=== PATIENT | female | born 1965 | race Caucasian/White ===

== ENCOUNTER → 2016-11-16 | Outpatient (CLI) | payer OTHER ==
[~2016-11-16] MED LIST: ASCO10003 PO; BIOTCAP2 PO; CALC500C70 PO; CEPH500C2 PO; FEXO1TAB58 PO; HYDR-5688 PO; LOSA100T2 PO; MULT-506 PO; OMEG10007 PO; PRM625 PO; SPECCAP4 PO; VITAMIN B12 SL
[2016-11-16 09:58] LABS: BLOOD UREA NITROGEN 15 mg/dl (7-18); BUN/CREATININE RATIO 18.1 (10-20); CARBON DIOXIDE 30 mmol/L (21-32); CHLORIDE 104 mmol/L (98-107); CHOLESTEROL 200 mg/dl (0-200); CREATININE 0.85 mg/dl (0.60-1.20); GLUCOSE 81 mg/dl (70-99); POTASSIUM 3.9 mmol/L (3.5-5.1); SODIUM 139 mmol/L (136-145); TRIGLYCERIDES 123 mg/dl (0-150); VERY LOW DENSITY LIPOPROT CALC 25 mg/dl
[2016-11-16 10:02] LABS: HDL CHOLESTEROL 67 mg/dl; LDL CHOLESTEROL CALCULATED 108 mg/dl
--- NOTE | 2016-11-19 11:35 | CODING QUERY NO DIAGNOSIS ---
TREATMENT RENDERED WITHOUT A DIAGNOSIS To promote full compliance with coding requirements relating to patient care, physician participation is requested in all cases of business services sales agent uncertainty. Please assist us with providing a diagnosis/symptom for the test(s) below: A diagnosis/symptom was not documented on your Order. A valid diagnosis/symptom is required to bill all insurances. Please remember that we are unable to code a diagnosis of rule out, probable, possible, questionable, or suspected. Tests that require a diagnosis: DOS 11/16 * PRP DIAGNOSIS: * Lipids DIAGNOSIS: Provider Signature: Date: Thank you Paula [facility] Health Information Management Once completed, please kindly fax back to [phone] For questions please call [phone]
== END | disposition home or self-care (01) ==
LOC: C.LAB 08:00
PROVIDERS: ATTEND Family Medicine
DX: I10 Essential (primary) hypertension (principal); Z13.220 Encounter for screening for lipoid disorders

== ENCOUNTER → 2016-11-24 | Outpatient (CLI) | payer OTHER ==
--- NOTE | 2016-11-25 07:38 | MAMMOGRAPHY REPORT ---
BILATERAL DIGITAL SCREENING MAMMOGRAM TOMOSYNTHESIS WITH CAD: 11/24/2016 CLINICAL HISTORY: Routine screening. Patient has no complaints. TECHNIQUE: Breast tomosynthesis in addition to standard 2D mammography was performed. Current study was also evaluated with a Computer Aided Detection (CAD) system. COMPARISON: Comparison is made to exams dated: 11/13/2015 mammogram, 11/08/2014 mammogram, 10/30/2014 m ammogram, 10/25/2013 mammogram, 10/18/2012 mammogram, and 10/14/2011 mammogram - [facility] nter. BREAST COMPOSITION: The tissue of both breasts is heterogeneously dense, which may obscure small mas ses. FINDINGS: There is a 9 mm asymmetry in the lateral, middle to posterior right breast on the CC view. The corresponding tomosynthesis images are equivocal for a possible mass in this location. Therefo re, additional spot compression tomosynthesis views and possible ultrasound are recommended, although this could represent normal overlapping fibroglandular tissue. There is a stable dominant 16 mm mass with associated coarse calcification in the central right breas t. A few benign rim calcifications and fluctuating nodularity in the left breast. No other suspiciou s mass, architectural distortion or cluster of microcalcifications is seen. IMPRESSION: ACR BI-RADS CATEGORY 0: INCOMPLETE EVALUATION: NEED ADDITIONAL IMAGING EVALUATION The 9 mm asymmetry in the lateral right breast needs additional evaluation. The patient will be called to schedule an appointment. Approximately 10% of breast cancers are not detected with mammography. A negative mammographic report should not delay biopsy if a clinically suggestive mass is present. Savanna Camejo M.D. ay/:11/24/2016 16:35:44 Aboriginal Education Teacher: Aleksandra WALLACE(R)(M), [facility] letter sent: Addl Imaging 0 BI-RADS Code: ACR BI-RADS Category 0: Incomplete Evaluation: Need Additional Imaging Evaluation
== END | disposition home or self-care (01) ==
LOC: C.MAMM 16:03
PROVIDERS: ATTEND Obstetrics & Gynecology
DX: Z12.31 Encounter for screening mammogram for malignant neoplasm of breast (principal)

== ENCOUNTER → 2016-12-10 | Outpatient (CLI) | payer OTHER ==
--- NOTE | 2016-12-10 13:24 | MAMMOGRAPHY REPORT ---
UNILATERAL RIGHT DIGITAL DIAGNOSTIC MAMMOGRAM TOMOSYNTHESIS AND TARGETED RIGHT ULTRASOUND: 12/10/2016 CLINICAL HISTORY: Callback from screening mammogram for right breast asymmetry. TECHNIQUE: Breast tomosynthesis in addition to standard 2D mammography was performed. Spot compress ion right CC and MLO 2-D and tomosynthesis images were obtained. COMPARISON: Comparison is made to exams dated: 11/24/2016 mammogram, 11/13/2015 mammogram, 10/30/2014 m ammogram, 10/25/2013 mammogram, 10/18/2012 mammogram, and 10/14/2011 mammogram - [facility] nter. BREAST COMPOSITION: The tissue of the right breast is heterogeneously dense, which may obscure small masses. FINDINGS: The previously described 9 mm asymmetry seen within the right lateral breast on the cc vie w effaces on the spot compression view, without a suspicious mass or architectural distortion seen in this region on the tomosynthesis images. Targeted ultrasound was performed of the right lateral breast in the region of the mammographic asymm etry. Multiple anechoic benign cysts and cyst clusters were seen in the right lateral breast during the ultrasound exam, including a 3 x 4 mm simple cyst in the right breast 8:00, 8 cm from the nipple, an 8 x 9 mm cyst in the right breast at 9:30, 6 cm from the nipple, a 3 mm cyst in the right breast at 11:00, 4 cm from the nipple, and an 11 x 7 mm cluster of cysts in the right 11:[address] The cyst in the right 9:30 breast may correspond with the mammographic asymmetry. Alternatively , the asymmetry could represent normal fibroglandular tissue. IMPRESSION: ACR BI-RADS CATEGORY 2: BENIGN, TARGETED ULTRASOUND ACR BI-RADS CATEGORY 2: BENIGN The right lateral breast asymmetry effaces on the additional views. Multiple benign cysts and cyst c lusters were seen within the right lateral breast on the ultrasound exam. One 9 mm benign cyst in th e right breast at 9:30 may correspond with the mammographic asymmetry. Alternatively, the asymmetry may represent normal fibroglandular tissue. There is no mammographic or targeted sonographic evidenc e of malignancy. A 1 year screening mammogram is recommended. The patient has been verbally notified of the results. Approximately 10% of breast cancers are not detected with mammography. A negative mammographic report should not delay biopsy if a clinically suggestive mass is present. Brianna Correia M.D. ah/:12/10/2016 08:41:59 [employer]: Margaret WALLACE(Martha)(Chyna), [facility] letter sent: Normal 1/2 BI-RADS Code: ACR BI-RADS Category 2: Benign Ultrasound BI-RADS: ACR BI-RADS Category 2: Benign
== END | disposition home or self-care (01) ==
LOC: C.MAMM 08:02
PROVIDERS: ATTEND Family Medicine
DX: N64.89 Other specified disorders of breast (principal); N60.01 Solitary cyst of right breast

== ENCOUNTER → 2017-01-12 | Outpatient (CLI) | payer OTHER | END | disposition home or self-care (01) | LOC: C.CPL 16:06 | PROVIDERS: ATTEND Surgery | DX: R22.9 Localized swelling, mass and lump, unspecified (principal) ==

== ENCOUNTER → 2017-02-09 | Day surgery (SDC) | payer OTHER ==
[2017-01-14 15:05] VITALS: Ht 162.6 cm; Wt 59.5 kg
[~2017-02-09] VITALS: Ht 162.6 cm; Wt 59.5 kg
[~2017-02-09] MED LIST changes: +ATROPINE SULFATE 0.1 MG/ML 5ML SYR IV PRN; +CEFAZOLIN 2000 MG/60 ML D5W IV STA; +CEFAZOLIN IV 2,000 MG/60 ML D5W IV ONE; +CIPROFLOXACIN / D5W 400 MG IV SCH; +EpHEDrine SULFATE INJ 50 MG/ML AMP IV PRN; +FENTANYL CITRATE INJ 50 MCG/1 ML 2 ML VIAL IV PRN; +FENTANYL CITRATE INJ 50 MCG/1 ML 2 ML VIAL ONE; +FLUMAZENIL 0.1 MG/1 ML 10 ML VIAL IV PRN; +HYDROCODONE/ACETAMOPHEN 5/325MG TAB PO PRN; +IBUPROFEN 200 MG TAB ONE; +IBUPROFEN 600 MG TAB PO STA; +LABETALOL HCL IV 5 MG/ML 20ML IV PRN; +LACTATED RINGER'S 1000ML 1,000 ML IV SCH; +LIDOCAINE HCL 1% 20 ML VIAL ONE; +LIDOCAINE HCL 2% 2 ML VIAL (20MG/ML) ONE; +MIDAZOLAM HCL 1 MG/ML 2ML VIAL ONE; +NALOXONE HCL 0.4 MG/1 ML VIAL/CARP IV PRN; +ONDANSETRON INJ 2 MG/ML 2 ML VIAL IV PRN; +PROMETHAZINE HCL INJ 12.5 MG in SODIUM CHLORIDE 0.9% 50ML 50 ML IV PRN; +PROPOFOL IV EMULSION 10 MG/ML 20 ML VIAL IV ONE; +SODIUM CHLORIDE 0.9% 1000ML 1,000 ML IV SCH
--- NOTE | 2017-02-09 06:23 | Discharge Instructions-SurgCtr ---
Discharge Instructions Date of Service Feb 09, 2017. Visit Reason for Visit: Chest Wall Mass Discharge Discharge Diagnosis / Problem: soft tissue mass Discharge Goals Goal(s): Decrease discomfort, Improve function, Improve disease control Activity Recommendations Activity Limitations: as noted below Lifting Limitations: no more than 25 pounds Exercise/Sports Limitations: until after follow-up appointment May Resume Sexual Activity: when tolerated Shower/Bathe: keep incision dry (may shower over incision in 2 days- 02/11) Driving or Machine Use: resume 1 day after discharge SPECIAL CARE INSTRUCTIONS: * Cover incisions and change daily for comfort/drainage. * May use ibuprofen for pain as tolerated. * Expect some swelling and bruising. Call your doctor if: * Temperature above 101 degrees * Pain not relieved by pain medicine ordered * There is increased drainage or redness from any incision * You have any unanswered questions or concerns [phone]. FOLLOW UP VISIT: If not already scheduled, please call the office for a follow-up visit. for 2 weeks- check up OFFICE PHONE NUMBER: Dr. Maddox Office Anesthesia . Post Anesthesia Instructions: If you have had General Anesthesia or IV Sedation: * Do not drive today. * Resume driving when surgeon permits. * Do not make important decisions or sign legal documents today. * Call surgeon for: 1. Temperature elevations greater than 101 degrees F. 2. Uncontrollable pain. 3. Excessive bleeding. 4. Persistent nausea and vomiting. 5. Medication intolerance (nausea, vomiting or rash). * For nausea and vomiting use only clear liquids such as: tea, soda, bouillon until nausea subsides, then gradually increase diet as tolerated. * If you have any concerns or questions, call your surgeon's office. If physician is unavailable and it is an emergency, call 911 or go to the nearest emergency room. . Diet Recommendations Home Diet: resume previous diet Pending Studies Studies pending at discharge: no Medical Emergencies . Who to Call and When: Medical Emergencies: If at any time you feel your situation is an emergency, please call 911 immediately. . Non-Emergent Contact Non-Emergency issues call your: Primary Care Provider, Surgeon . . "Provider Documentation" section prepared by Alex Maddox. .
--- NOTE | 2017-02-09 06:50 | History & Physical Bridge - SC ---
H&P Re-Evaluation Bridge Note: I have examined the patient, reviewed the History & Physical and in the interval since the performance of the History & Physical I have noted the following changes of clinical significance: No changes noted
--- NOTE | 2017-02-09 07:40 | [facility] Operative Report ---
Operative Report Operative Date Feb 09, 2017. Pre-Operative Diagnosis Chest Wall Mass Post-Operative Diagnosis Sebaceous Cyst Procedure(s) Performed Excision of Subcutaneous Mass Surgeon Dr. Karin Maddox Teacher Of [employer] Hearing Impaired Surgeon(s) Kim Truong PA-C Estimated Blood Loss 10 cc Findings 4 cm mass- likely maddison cyst, inflammation Specimens A. Chest Wall Mass Anesthesia local/ sedation Complication(s) None Disposition Recovery Room / PACU I attest to the content of the Intraoperative Record and any orders documented therein. Any exceptions are noted below.
[2017-02-09 07:41] VITALS: TEMP 36.3
--- NOTE | 2017-02-09 07:56 | OPERATIVE REPORT ---
DATE OF OPERATION: 02/09/2017 NAME OF OPERATION: Excision of 4 cm subcutaneous mass. PREOPERATIVE DIAGNOSIS: Sebaceous cyst versus lipoma. POSTOPERATIVE DIAGNOSIS: Sebaceous cyst. STAFF SURGEON: Dr. Maddox. STAFF ASSISTANT: Roseann Truong PA-C. ANESTHESIA: Local with sedation. PROCEDURE: The patient was brought in the operating room and placed on the operating table in supine position. Her lower chest, upper abdomen was prepped and draped in usual fashion. She had an area of mass which was approximately 4 x 2 cm palpable with some mild erythema. Elliptical incision was made carrying dissection down identifying what appeared to be a sebaceous cyst, but there was surrounding inflammation. This was excised down into the subcutaneous tissue. After appropriate hemostasis, the deep tissue was reapproximated using 3-0 Vicryl suture, then the skin reapproximated using subcuticular 4-0 Monocryl and Steri-Strips. Dressing applied and patient transferred to recovery room in stable condition. I attest to the content of the Intraoperative Record and any orders documented therein. Any exception s are noted below.
--- NOTE | 2017-02-09 08:04 | Anesthesiology Progress Note ---
Anesthesia Post Op Note Date & Time Feb 09, 2017 at 08:04 Vital Signs Pain Intensity: 0 Vital Signs Past 12 Hours Date Time Temp Pulse Resp B/P (MAP) Pulse Ox O2 Delivery O2 Flow Rate FiO2 02/09/17 07:41 36.3 83 16 102/66 (78) 99 Room Air 02/09/17 06:37 36.4 85 22 113/76 (88) 98 Room Air Notes Mental Status: alert / awake / arousable, participated in evaluation Pt Amnestic to Procedure: Yes Nausea / Vomiting: adequately controlled Pain: adequately controlled Airway Patency, RR, SpO2: stable & adequate BP & HR: stable & adequate Hydration State: stable & adequate Anesthetic Complications: no major complications apparent
[2017-02-09 08:08] VITALS: BP 125/57; PULSE 75; O2SAT 100
--- NOTE | 2017-02-09 08:19 | Anesthesia Progress Nt - [facility] ---
Anesthesia Post Op Note Date & Time Feb 09, 2017 at 08:18 Vital Signs Pain Intensity: 2 Vital Signs Past 12 Hours Date Time Temp Pulse Resp B/P (MAP) Pulse Ox O2 Delivery O2 Flow Rate FiO2 02/09/17 08:08 75 18 125/57 (79) 100 Room Air 02/09/17 07:41 36.3 83 16 102/66 (78) 99 Room Air 02/09/17 06:37 36.4 85 22 113/76 (88) 98 Room Air Notes Mental Status: alert / awake / arousable, participated in evaluation Pt Amnestic to Procedure: Yes Nausea / Vomiting: adequately controlled Pain: adequately controlled Airway Patency, RR, SpO2: stable & adequate BP & HR: stable & adequate Hydration State: stable & adequate Anesthetic Complications: no major complications apparent
== END | disposition home or self-care (01) ==
LOC: X.SURG 06:26
PROVIDERS: ATTEND Surgery
DX: C82.92 Follicular lymphoma, unspecified, intrathoracic lymph nodes (principal)

== ENCOUNTER → 2017-03-02 | Outpatient (CLI) | payer OTHER ==
[~2017-03-02] MED LIST changes: -ATROPINE SULFATE 0.1 MG/ML 5ML SYR IV PRN; -CEFAZOLIN 2000 MG/60 ML D5W IV STA; -CEFAZOLIN IV 2,000 MG/60 ML D5W IV ONE; -CIPROFLOXACIN / D5W 400 MG IV SCH; -EpHEDrine SULFATE INJ 50 MG/ML AMP IV PRN; -FENTANYL CITRATE INJ 50 MCG/1 ML 2 ML VIAL IV PRN; -FENTANYL CITRATE INJ 50 MCG/1 ML 2 ML VIAL ONE; -FLUMAZENIL 0.1 MG/1 ML 10 ML VIAL IV PRN; -HYDROCODONE/ACETAMOPHEN 5/325MG TAB PO PRN; -IBUPROFEN 200 MG TAB ONE; -IBUPROFEN 600 MG TAB PO STA; -LABETALOL HCL IV 5 MG/ML 20ML IV PRN; -LACTATED RINGER'S 1000ML 1,000 ML IV SCH; -LIDOCAINE HCL 1% 20 ML VIAL ONE; -LIDOCAINE HCL 2% 2 ML VIAL (20MG/ML) ONE; -MIDAZOLAM HCL 1 MG/ML 2ML VIAL ONE; -NALOXONE HCL 0.4 MG/1 ML VIAL/CARP IV PRN; -ONDANSETRON INJ 2 MG/ML 2 ML VIAL IV PRN; -PROMETHAZINE HCL INJ 12.5 MG in SODIUM CHLORIDE 0.9% 50ML 50 ML IV PRN; -PROPOFOL IV EMULSION 10 MG/ML 20 ML VIAL IV ONE; -SODIUM CHLORIDE 0.9% 1000ML 1,000 ML IV SCH
[2017-03-02 15:37] LABS: BASO % 0.5 %; BASO ABS # 0.04 K/uL (0-0.2); COMPLETE YES; HEMATOCRIT 39.6 % (37-47); IG% 0.1 %; LYMPH % 29.1 %; LYMPH ABS # 2.24 K/uL (1.2-3.4); MEAN CELL VOLUME 91.7 fL (80-100); MEAN CORPUSCULAR HEMOGLOBIN 30.8 pg (25-34); MEAN CORPUSCULAR HGB CONC 33.6 g/dl (32-36); MEAN PLATELET VOLUME 9.5 fL (7.4-10.4); MONO % 10.5 %; NEUT % 56.8 %; PLATELET COUNT 276 K/uL (130-400); RED BLOOD COUNT 4.32 M/uL (4.2-5.4); WHITE BLOOD COUNT 7.69 K/uL (4.8-10.8)
[2017-03-02 16:04] LABS: ALT/SGPT 23 U/L (12-78); BLOOD UREA NITROGEN 11 mg/dl (7-18); BUN/CREATININE RATIO 14.5 (10-20); CALCIUM 8.7 mg/dl (8.5-10.1); CARBON DIOXIDE 30 mmol/L (21-32); CHLORIDE 104 mmol/L (98-107); CREATININE 0.77 mg/dl (0.60-1.20); GLUCOSE 95 mg/dl (70-99); POTASSIUM 3.6 mmol/L (3.5-5.1); SODIUM 140 mmol/L (136-145)
[2017-03-02 16:09] LABS: ALB/GLOB RATIO 1.1 (0.9-2); ALKALINE PHOSPHATASE 88 U/L (45-117); AST/SGOT 16 U/L (15-37)
== END | disposition home or self-care (01) ==
LOC: C.LAB 14:50
PROVIDERS: ATTEND Internal Medicine Hematology & Oncology
DX: C82.19 Follicular lymphoma grade II, extranodal and solid organ sites (principal)

== ENCOUNTER → 2017-03-10 | Outpatient (CLI) | payer OTHER ==
--- NOTE | 2017-03-10 09:43 | DIAGNOSTIC IMAGING REPORT ---
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 COMPARISON STUDY: No priors. TECHNIQUE: One hour following the IV administration of 15.99 mCi of F-18 FDG, PET/CT examination was performed from the orbital meatal line through the feet. Noncontrast CT is performed for the purposes of anatomic correlation and attenuation correction. Note that this does not reflect a diagnostic CT examination. Images were reviewed on a separate [employer] independent workstation. Fused images were obtained. Standard uptake values reported are maximum values within the region of interest expressed in gm/mL. FINDINGS: PET FINDINGS: Head and neck: There is expected physiologic activity within the visualized brain parenchyma at the skull base and the salivary glands. Low level pharyngeal activity as well as nonspecific activity localizing to the left thyroid cartilage in image #38 is likely within physiologic limits. There are no pathologically enlarged or FDG avid cervical lymph nodes. Thorax: Evaluation of the thorax demonstrates expected physiologic myocardial activity. There is a 1.6 cm calcification containing nodule in the right breast seen on image #98. The appearance is typical for a fibroadenoma. This was not demonstrably FDG avid. There are no pathologically enlarged or FDG avid mediastinal, hilar, or axillary lymph nodes. There is mild dermal thickening and induration involving the ventral midline lower chest/upper abdominal wall, which extends to a depth of 8 mm. This is located just below the xiphoid of the sternum on axial image #115. This is FDG avid with a maximum SUV of 2.6. Abdomen and pelvis: There is expected activity within the liver, spleen, kidneys, renal collecting system, and bladder. Low-level bowel activity is likely within physical limits. There is no abdominal or pelvic lymphadenopathy. The spleen is normal in size, measuring 10 cm in length. Lower extremities: There is no inguinal lymphadenopathy. No abnormal dermal thickening or FDG activity seen in the legs. Unenhanced CT images: Visualized brain parenchyma at the skull base is normal in appearance. The orbital contents are normal as visualized. The imaged paranasal sinuses are clear. There is a right mastoid effusion. The salivary and thyroid glands are within normal limits. The thoracic aorta is normal in caliber. The heart is normal in size and without pericardial effusion. The lungs and pleural spaces are clear. The gallbladder surgically absent. The unenhanced liver, spleen, adrenal glands, pancreas, and kidneys are grossly normal. The abdominal aorta is normal in course and caliber. There is no bowel obstruction. There is no intraperitoneal free air or abdominal ascites. The bladder is normal in appearance. The uterus is surgically absent. No adnexal lesion is seen. The lower extremity soft tissues are normal in appearance. Chronic posttraumatic deformity is seen in the left ischio. No destructive bony lesion is seen. IMPRESSION: 1. There is dermal thickening with associated FDG activity seen involving the soft tissues in the ventral midline lower chest/upper abdomen. This is consistent with the reported history of follicular lymphoma of the dermis. 2. No additional sites of dermal disease are identified. 3. There are no pathologically enlarged lymph nodes seen. The spleen is normal in size. 4. The lungs are clear. 5. Additional findings as above. Electronically signed by: Daniel Agrawal M.D. 03/10/2017 9:41 AM Dictated Date/Time: 03/10/2017 9:22 AM
== END | disposition home or self-care (01) ==
LOC: C.PET 03-03 07:06
PROVIDERS: ATTEND Internal Medicine Hematology & Oncology
DX: C82.19 Follicular lymphoma grade II, extranodal and solid organ sites (principal)

== ENCOUNTER → 2017-05-11 | Outpatient (CLI) | payer OTHER ==
[~2017-05-11] MED LIST changes: -CEPH500C2 PO; -HYDR-5688 PO; +voltaren gel TOP
[2017-05-11 09:58] LABS: BASO % 0.7 %; BASO ABS # 0.04 K/uL (0-0.2); EOS ABS # 0.16 K/uL (0-0.5); HEMATOCRIT 41.7 % (37-47); HEMOGLOBIN 13.8 g/dL (12.0-16.0); IG# 0.02 K/uL (0.00-0.02); LYMPH % 26.8 %; LYMPH ABS # 1.45 K/uL (1.2-3.4); MEAN CELL VOLUME 92.7 fL (80-100); MEAN CORPUSCULAR HEMOGLOBIN 30.7 pg (25-34); MEAN CORPUSCULAR HGB CONC 33.1 g/dl (32-36); MEAN PLATELET VOLUME 10.1 fL (7.4-10.4); MONO ABS # 0.65 K/uL (0.11-0.59); NEUT % 57.1 %; NEUT ABS # 3.09 K/uL (1.4-6.5); PLATELET COUNT 271 K/uL (130-400); RED CELL DISTRIBUTION WIDTH CV 12.4 % (11.5-14.5); RED CELL DISTRIBUTION WIDTH SD 42.4 fL (36.4-46.3); WHITE BLOOD COUNT 5.41 K/uL (4.8-10.8)
[2017-05-11 10:06] LABS: ALBUMIN 3.5 gm/dl (3.4-5.0); ALT/SGPT 24 U/L (12-78); BLOOD UREA NITROGEN 19 mg/dl (7-18); CALCIUM 8.6 mg/dl (8.5-10.1); CARBON DIOXIDE 30 mmol/L (21-32); CREATININE 0.79 mg/dl (0.60-1.20); GLUCOSE 95 mg/dl (70-99); POTASSIUM 3.8 mmol/L (3.5-5.1); SODIUM 139 mmol/L (136-145)
[2017-05-11 10:09] LABS: ALKALINE PHOSPHATASE 80 U/L (45-117); AST/SGOT 16 U/L (15-37); TOTAL PROTEIN 7.1 gm/dl (6.4-8.2)
== END | disposition home or self-care (01) ==
LOC: C.LAB 08:15
PROVIDERS: ATTEND Internal Medicine Hematology & Oncology
DX: C82.19 Follicular lymphoma grade II, extranodal and solid organ sites (principal)

== ENCOUNTER → 2017-06-08 | Outpatient (CLI) | payer OTHER ==
[2017-06-08 15:09] VITALS: BP 115/70; PULSE 96; TEMP 36.6; O2SAT 97
--- NOTE | 2017-06-08 15:40 | Radiation Oncology Follow-Up ---
Radiation Oncology Follow-Up Date of Visit Jun 08, 2017. Reason For Visit One-month follow-up Radiation Completion Date 04/27/17 Diagnosis (1) Cutaneous B-cell lymphoma Status: Resolved Onset Date: 02/09/2017 Location: upper abdominal wall Stage: l Permanent Comment: Development of a mass of the central lower chest Increase in size and development of overlying redness December 2015 Status post partial excision Status post wide excision 02/09/2017 Non-Hodgkin's B-cell lymphoma, follicular low-grade Status post completion of radiation therapy to the abdominal wall 04/27/2017 received 3600 cGy Last Edited By: Tila Rainey on May 06, 2017 11:39 History of Present Illness Ms. Cordero had a lump in her midline of her chest for several years that was slowly grown over time. She states that the mass has became more red over time. The patient was evaluated by Dr. Maddox in December 2016 who recommended an excisional biopsy. The patient was brought to the operating room on 02/09/2017 underwent an excisional biopsy by Dr. Maddox; Dr. Maddox described the mass as measuring 4 x 2 cm and with some mild erythema. 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 The patient was seen by Dr. Bruno Platt from medical oncology. The patient then had a PET/CT scan completed on 03/10/2017 which revealed dermal thickening with associated FDG activity involving the soft tissues in the ventral midline lower chest/upper abdomen but no other evidence of additional sites of disease. The patient was staged as stage I primary cutaneous low-grade lymphoma. Dr. Platt recommended consideration of primary radiation therapy followed by close surveillance and monitoring. We are now seeing the patient in consultation discuss the role of radiation therapy. Status post completion of radiation therapy 04/27/2017. She received 3600 cGy Interim History She's been doing well over the past month. There was mild erythema with the maculopapular rash at the end of treatment. She use the natural care gel. Following her treatment she went on a vacation. She diligently used sunscreen. She had no difficulty with skin irritation. Since returning home the skin shows only a slight darker discoloration. She has no masses and no tenderness. Allergies Coded Allergies: Clindamycin (Verified Allergy, Intermediate, HIVES, 02/09/17) Macrolides and Ketolides (Verified Allergy, Intermediate, HIVES, HEART PALPITAIONS, 02/09/17) ERYTHROMYCIN, HIVES & HEART PALPITATIONS Sulfa Antibiotics (Verified Allergy, Intermediate, HIVES, HEART PALPITATIONS, 02/09/17) BACTRIM-HIVES, HEART PALPITATIONS Sulfamethoxazole (Verified Allergy, Intermediate, RASH, 02/09/17) Ciprofloxacin (Verified Allergy, Unknown, ., 02/09/17) pt states reddened streak up her arm. told her allergic to IV form Erythromycin (Verified Allergy, Unknown, RASH, 02/09/17) Latex (Verified Allergy, Unknown, RASH, 02/09/17) Levocetirizine (Verified Allergy, Unknown, itchiness/ rash, 02/09/17) Home Medications Scheduled Ascorbic Acid (Vitamin C), 1 TAB PO QAM Biotin (Biotin 5000), 1 CAP PO QAM Calcium/Vitamin D (Os-Juan 500 Plus D), 1 TAB PO QAM Estrogens, Conjugated (Premarin), 0.625 MG PO QAM Fexofenadine-Pseudoephedrine (Katlyn-D 24 Hour Allergy), 1 TAB PO QAM Fish Oil ([place]-3), 1 CAP PO QAM Losartan Potassium & Hydrochlo (Hyzaar), 1 TAB PO QAM Multivitamin (Multivitamin), 1 TAB PO QAM Specialty Vitamins Products (Collagen Ultra), 1 CAP PO QAM [Vitamin B12], 2,000 MG SL QAM Review of Systems Gastrointestinal: Symptoms: WNL Oral: Symptoms: No Problems Respiratory: Symptoms: WNL Urinary: Symptoms: WNL Skin: Symptoms: No Problems Other Skin Symptoms: skin discoloration at site Additional Notes: She completed a distress management report and answered "no" to all questions. Physical Exam Vital Signs Date Time Temp Pulse Resp B/P (MAP) Pulse Ox O2 Delivery O2 Flow Rate FiO2 06/08/17 15:09 36.6 96 20 115/70 97 Fatigue: None General Appearance: no apparent distress Abdomen: non tender, soft, + pertinent finding (there is an oval area of hyperpigmentation around the well-healed incision. There is no erythema or edema.) Pain Management Patient Reports Pain: Yes Side: Left Pain Location: tendonitis of arm, sortisone inj last week Patient Preferred Pain Scale: 0 - 10 Initial Pain Intensity: 1.0 Pain Management Plan This requires no pain management. Laboratory Laboratory Results: not applicable Pathology Pathology Results: not applicable Imaging Imaging Studies: not applicable Assessment & Plan Patient was also seen and examined by Dr. Mclain. She'll continue to use sunscreen when needed. Continue follow-up with Dr. Platt. A follow-up appointment with our office was not given. She may call if she has any questions or concerns would be happy to see her. Assessment & Plan (Attending) ADDENDUM: I agree with note created by Tila Rainey PA-C. I reviewed the patient's chart and information with her. I have examined and evaluated the patient. I reviewed relevant clinical information and answered the patient's and /or family's questions. [employer] Total Time In Follow-Up I suspect 15 minutes speaking to the patient and performing examination. I spent 15 minutes reviewing information in completing this note. Total Time (Attending) In Follow-Up I spent 15 minutes examining and counseling the patient. [employer] Copy To Nila Smith M.D.; Alex Maddox M.D.; Bruno Platt MD
== END | disposition home or self-care (01) ==
LOC: C.ONC 14:56
PROVIDERS: ATTEND Physician Assistant Medical
DX: Z08 Encounter for follow-up examination after completed treatment for malignant neoplasm (principal); Z92.3 Personal history of irradiation; Z85.72 Personal history of non-Hodgkin lymphomas

== ENCOUNTER → 2017-12-07 | Outpatient (CLI) | payer OTHER ==
[~2017-12-07] MED LIST changes: -voltaren gel TOP
[2017-12-07 09:46] LABS: BLOOD UREA NITROGEN 18 mg/dl (7-18); CALCIUM 8.7 mg/dl (8.5-10.1); CARBON DIOXIDE 28 mmol/L (21-32); CHOLESTEROL 213 mg/dl (0-200); GLUCOSE 86 mg/dl (70-99); LDL CHOLESTEROL CALCULATED 122 mg/dl; POTASSIUM 3.9 mmol/L (3.5-5.1); SODIUM 141 mmol/L (136-145)
== END | disposition home or self-care (01) ==
LOC: C.LAB 08:09
PROVIDERS: ATTEND Family Medicine
DX: Z00.00 Encounter for general adult medical examination without abnormal findings (principal)